=== PATIENT | male | born 1980 | race Hispanic/Latino ===

== ENCOUNTER 2018-03-05 09:53 | Emergency (ER) | payer SELFPAY ==
[2018-03-05] MEDS ORDERED: AMLODIPINE 5 MG TAB ONE (11:02)
[2018-03-05 11:13] LABS: Urine Blood NEGATIVE (NEG); Urine Glucose NEGATIVE (NEG); Urine Protein NEGATIVE (NEG)
[2018-03-05 11:18] LABS: Urine Bacteria <20 /HPF (NONE SEEN); Urine RBC <5 /HPF (NONE SEEN)
[2018-03-05 11:19] LABS: Urine Culture Reflex Order NOT NEEDED
[2018-03-05 11:20] LABS: Absolute Monocytes 0.4 K/uL (0.1-1.3); Absolute Neutrophil 6.8 K/uL (1.8-8.0); Basophils % 0.5 % (0-1.3); Eosinophils % 0.2 % (0-4.4); Hematocrit 42.8 % (39.6-49.0); Lymphocytes % 21.6 % (15.3-44.8); MPV 6.8 fL (7.6-11.3); Monocytes % 4.2 % (3.3-12.3); RBC Red Blood Cell Count 4.37 M/uL (4.33-5.43)
[2018-03-05 11:23] LABS: Barbiturates NEGATIVE (NEGATIVE); Benzodiazepines NEGATIVE (NEGATIVE); Cocaine NEGATIVE (NEGATIVE); METHAMPHETAM NEGATIVE (NEGATIVE); Methadone NEGATIVE (NEGATIVE); Opiates NEGATIVE (NEGATIVE); Phencyclidine NEGATIVE (NEGATIVE); THC Cannibis POSITIVE (NEGATIVE)
[2018-03-05 11:27] LABS: Albumin 4.2 g/dL (3.4-5.0); Bilirubin Direct 0.1 mg/dL (0-0.2); Bilirubin Total 0.3 mg/dL (0.2-1.0); Potassium 4.3 mmol/L (3.5-5.1); Protein, Total 8.4 g/dL (6.4-8.2)
--- NOTE | 2018-03-05 11:43 | EDPHYS ---
Physician Documentation [facility] Name: Raman Olivo Age: 37 yrs Sex: Male : 1980 Arrival Date: 03/05/2018 Time: 09:56 Bed 23 Private MD: ED Physician Teodoro Lees HPI: 03/05 11:01 This 37 yrs old Male presents to ER via Ambulatory with complaints of High snw Blood Pressure, Dizziness. 11:01 The patient has elevated blood pressure and discovered this [facility]. Onset: snw The symptoms/episode began/occurred gradually. Associated signs and symptoms: Pertinent positives: occ. dizziness. Severity of symptoms: in the emergency department the blood pressure is unchanged. has not been on medications. It is unknown whether or not the patient has recently seen a physician. Historical: - Allergies: 10:00 No Known Allergies; hj - Home Meds: 10:00 Effexor Oral [Active]; Wellbutrin Oral [Active]; Abilify oral oral [Active]; hj - PMHx: 10:00 Depression; Anxiety; hj - PSHx: 10:00 None; hj - Immunization history:: Adult Immunizations unknown. - Social history:: Smoking status: Patient uses tobacco products, Patient/guardian denies using alcohol. - Ebola Screening: : Patient negative for fever greater than or equal to 101.5 degrees Fahrenheit, and additional compatible Ebola Virus Disease symptoms Patient denies exposure to infectious person Patient denies travel to an Ebola-affected area in the 21 days before illness onset. ROS: 10:56 Eyes: Negative for injury, pain, redness, and discharge, ENT: Negative for injury, snw pain, and discharge, Neck: Negative for injury, pain, and swelling, Cardiovascular: Negative for chest pain, palpitations, and edema, Respiratory: Negative for shortness of breath, cough, wheezing, and pleuritic chest pain, Abdomen/GI: Negative for abdominal pain, nausea, vomiting, diarrhea, and constipation, Back: Negative for injury and pain, : Negative for injury, bleeding, discharge, and swelling, MS/Extremity: Negative for injury and deformity, Skin: Negative for injury, rash, and discoloration. 10:56 Constitutional: Positive for fatigue, malaise. 10:56 Neuro: Positive for dizziness, occasionally . 10:56 Psych: Positive for pt at [facility] - notes at each visit his blood pressure readings are high and he is advised to f/u PCP. Exam: 10:56 Constitutional: This is a well developed, well nourished patient who is awake, alert, snw and in no acute distress. Head/Face: Normocephalic, atraumatic. Eyes: Pupils equal round and reactive to light, extra-ocular motions intact. Lids and lashes normal. Conjunctiva and sclera are non-icteric and not injected. Cornea within normal limits. Periorbital areas with no swelling, redness, or edema. ENT: Nares patent. No nasal discharge, no septal abnormalities noted. Tympanic membranes are normal and external auditory canals are clear. Oropharynx with no redness, swelling, or masses, exudates, or evidence of obstruction, uvula midline. Mucous membranes moist. Neck: Trachea midline, no thyromegaly or masses palpated, and no cervical lymphadenopathy. Supple, full range of motion without nuchal rigidity, or vertebral point tenderness. No Meningismus. Chest/axilla: Normal chest wall appearance and motion. Nontender with no deformity. No lesions are appreciated. Cardiovascular: Regular rate and rhythm with a normal S1 and S2. No gallops, murmurs, or rubs. Normal PMI, no JVD. No pulse deficits. Respiratory: Lungs have equal breath sounds bilaterally, clear to auscultation and percussion. No rales, rhonchi or wheezes noted. No increased work of breathing, no retractions or nasal flaring. Abdomen/GI: Soft, non-tender, with normal bowel sounds. No distension or tympany. No guarding or rebound. No evidence of tenderness throughout. Back: No spinal tenderness. No costovertebral tenderness. Full range of motion. Skin: Warm, dry with normal turgor. Normal color with no rashes, no lesions, and no evidence of cellulitis. MS/ Extremity: Pulses equal, no cyanosis. Neurovascular intact. Full, normal range of motion. Neuro: Awake and alert, GCS 15, oriented to person, place, time, and situation. Cranial nerves II-XII grossly intact. Motor strength 5/5 in all extremities. Sensory grossly intact. Cerebellar exam normal. Normal gait. Vital Signs: 10:00 BP 172 / 127; Pulse 86; Resp 18; Temp 97.7(TE); Pulse Ox 99% on R/A; Weight 80.74 kg; hj Height 6 ft. 1 in. (185.42 cm); Pain 0/10; 10:37 BP 164 / 128; Pulse 84; Resp 18; Pulse Ox 100% on R/A; Pain 0/10; ls4 11:28 BP 158 / 115; Pulse 78; Resp 18; Pulse Ox 100% on R/A; Pain 0/10; ls4 12:20 BP 157 / 99; Pulse 76; Resp 18; Temp 98.2(O); Pulse Ox 99% on R/A; Pain 0/10; ls4 10:00 Body Mass Index 23.48 (80.74 kg, 185.42 cm) hj MDM: 10:06 Patient medically screened. snw 11:43 Data reviewed: vital signs, nurses notes. Data interpreted: Pulse oximetry: on room air snw is 100 %. Interpretation: normal. Counseling: I had a detailed discussion with the patient and/or guardian regarding: the historical points, exam findings, and any diagnostic results supporting the discharge/admit diagnosis, the presence of at least one elevated blood pressure reading (>120/80) during this emergency department visit, lab results, the need for outpatient follow up, to return to the emergency department if symptoms worsen or persist or if there are any questions or concerns that arise at home. Special discussion: I have referred the patient to see his PCP for further evaluation of high blood pressure. Based on the history and exam findings, there is no indication for further emergent testing or inpatient evaluation. I discussed with the patient/guardian the need to see the primary care provider for further evaluation of the symptoms. 03/05 10:47 Order name: Basic Metabolic Panel; Complete Time: 11:41 snw 03/05 10:47 Order name: CBC with Diff; Complete Time: 11:23 snw 03/05 10:47 Order name: Hepatic Function; Complete Time: 11:41 snw 03/05 10:47 Order name: Lipase; Complete Time: 11:41 snw 03/05 10:47 Order name: Urine Drug Screen; Complete Time: 11:25 snw 03/05 10:47 Order name: Urine Microscopic Only; Complete Time: 11:23 snw 03/05 10:47 Order name: IV Saline Lock; Complete Time: 11:07 snw 03/05 10:47 Order name: Labs collected and sent; Complete Time: : w 03/05 10:47 Order name: Urine Dipstick-Ancillary (obtain specimen); Complete Time: : snw 03/05 11:09 Order name: Urine Dipstick--Ancillary (enter results); Complete Time: 11:20 eb Administered Medications: 11:00 Drug: Norvasc 5 mg Route: PO; ls4 11:34 Follow up: Response: No adverse reaction; Blood pressure is lowered ls4 11:58 Drug: cloNIDine 0.1 mg Route: PO; ls4 Disposition: 03/06 07:20 Co-signature as Attending Physician, Teodoro Lees MD. rn Disposition: 03/05/18 11:42 Discharged to Home. Impression: Essential (primary) hypertension. - Condition is Stable. - Discharge Instructions: Hypertension, DASH Eating Plan, Managing Your Hypertension. - Prescriptions for Norvasc 5 mg Oral Tablet - take 1 tablet by ORAL route once daily; 20 tablet. - Medication Reconciliation Form, Thank You Letter, Antibiotic Education, Prescription Opioid Use form. - Follow up: Private Physician; When: 2 - 3 days; Reason: Recheck today's complaints, Continuance of care, Re-evaluation by your physician. Follow up: Emergency Department; When: As needed; Reason: Worsening of condition. Signatures: Dispatcher [employer] EDVT Shania Cruz, TYPE COPY EXAMINER-C TYPE COPY EXAMINER-Csnw Teodoro Lees MD MD rn Joaquin, Henry, RN RN hj Stewart, Lisa, RN RN ls4 Corrections: (The following items were deleted from the chart) 03/05 12:13 11:42 03/05/2018 11:42 Discharged to Home. Impression: Essential (primary) ls4 hypertension. Condition is Stable. Forms are Medication Reconciliation Form, Thank You Letter, Antibiotic Education, Prescription Opioid Use. Follow up: Private Physician; When: 2 - 3 days; Reason: Recheck today's complaints, Continuance of care, Re-evaluation by your physician. Follow up: Emergency Department; When: As needed; Reason: Worsening of condition. snw
--- NOTE | 2018-03-05 11:43 | ER ---
Nurse's Notes [facility] Name: Raman Olivo Age: 37 yrs Sex: Male : 1980 Arrival Date: 03/05/2018 Time: 09:56 Bed 23 Private MD: Diagnosis: Essential (primary) hypertension Presentation: 03/05 09:57 Presenting complaint: Patient states: i ve been feeling weak on and off for couple of hj weeks, i took my BP today and its, 166/104; reports nausea; denies headache; denies meds for HTN M[employer] JOU[employer]LIST;. Transition of care: patient was not received from another setting of care. Onset of symptoms was March 05, 2018. Risk Assessment: Do you want to hurt yourself or someone else? Patient reports no desire to harm self or others. Initial Sepsis Screen: Does the patient meet any 2 criteria? No. Patient's initial sepsis screen is negative. Does the patient have a suspected source of infection? No. Patient's initial sepsis screen is negative. Care prior to arrival: None. 09:57 Method Of Arrival: Ambulatory 09:57 Acuity: MARY 3 hj Triage Assessment: 10:00 General: Appears in no apparent distress. uncomfortable, Behavior is calm, cooperative, hj appropriate for age. Pain: Denies pain. Historical: - Allergies: 10:00 No Known Allergies; hj - Home Meds: 10:00 Effexor Oral [Active]; Wellbutrin Oral [Active]; Abilify oral oral [Active]; hj - PMHx: 10:00 Depression; Anxiety; hj - PSHx: 10:00 None; hj - Immunization history:: Adult Immunizations unknown. - Social history:: Smoking status: Patient uses tobacco products, Patient/guardian denies using alcohol. - Ebola Screening: : Patient negative for fever greater than or equal to 101.5 degrees Fahrenheit, and additional compatible Ebola Virus Disease symptoms Patient denies exposure to infectious person Patient denies travel to an Ebola-affected area in the 21 days before illness onset. Screenin:00 Abuse screen: Denies threats or abuse. Denies injuries from another. Nutritional hj screening: No deficits noted. Tuberculosis screening: No symptoms or risk factors identified. Fall Risk None identified. Assessment: 10:05 General: Appears in no apparent distress. Neuro: Reports dizziness, since for a few ls4 weeks. Cardiovascular: Reports fatigue, Capillary refill < 3 seconds Chest pain is denied. Respiratory: Airway is patent Trachea midline Respiratory effort is even, unlabored, Respiratory pattern is regular, Breath sounds are clear bilaterally. GI: No deficits noted. : No deficits noted. Derm: No deficits noted. Musculoskeletal: No deficits noted. 11:28 Reassessment: Patient and/or family updated on plan of care and expected duration. Pain ls4 level reassessed. Patient is alert, oriented x 3, equal unlabored respirations, skin warm/dry/pink. Vital Signs: 10:00 BP 172 / 127; Pulse 86; Resp 18; Temp 97.7(TE); Pulse Ox 99% on R/A; Weight 80.74 kg; hj Height 6 ft. 1 in. (185.42 cm); Pain 0/10; 10:37 BP 164 / 128; Pulse 84; Resp 18; Pulse Ox 100% on R/A; Pain 0/10; ls4 11:28 BP 158 / 115; Pulse 78; Resp 18; Pulse Ox 100% on R/A; Pain 0/10; ls4 12:20 BP 157 / 99; Pulse 76; Resp 18; Temp 98.2(O); Pulse Ox 99% on R/A; Pain 0/10; ls4 10:00 Body Mass Index 23.48 (80.74 kg, 185.42 cm) ED Course: 09:56 Patient arrived in ED. as 09:59 Triage completed. hj 10:00 Arm band placed on right wrist. hj 10:00 Patient has correct armband on for positive identification. Placed in gown. Bed in low hj position. Call light in reach. Side rails up X 1. 10:02 Shania Cruz FNP-C is [facility]. snw 10:02 Teodoro Lees MD is Attending Physician. snw 10:05 Crystal Oates, ROBINSON is Primary Nurse. ls4 10:07 No provider procedures requiring assistance completed. ls4 Administered Medications: 11:00 Drug: Norvasc 5 mg Route: PO; ls4 11:34 Follow up: Response: No adverse reaction; Blood pressure is lowered ls4 11:58 Drug: cloNIDine 0.1 mg Route: PO; ls4 Outcome: 11:42 Discharge ordered by . snw 12:10 Condition: stable ls4 12:10 Discharged to home ambulatory, with family. ls4 12:10 Discharge instructions given to patient, family, Instructed on discharge instructions, follow up and referral plans. medication usage, safety practices. 12:13 Patient left the ED. ls4 Signatures: Shania Cruz, CONSTRUCTION PIT WORKER-C CONSTRUCTION PIT WORKER-Csnw Francesca Rivera Henry, RN RN Crystal Oates RN RN ls4 Corrections: (The following items were deleted from the chart) 10:02 10:00 Pulse 86bpm; Resp 18bpm; Pulse Ox 99% RA; Temp 97.7F Temporal; 80.74 kg; Height 6 hj ft. 1 in.; BMI: 23.4; Pain 0/10; hj
[2018-03-05] MEDS ORDERED: cloNIDine HCl 0.1 MG TAB ONE (12:06)
== END 2018-03-05 12:13 | disposition home or self-care (01) ==
LOC: ER 09:53
DX: I10 Essential (primary) hypertension (principal); F32.9 Major depressive disorder, single episode, unspecified; F41.9 Anxiety disorder, unspecified; Z79.899 Other long term (current) drug therapy; Z72.0 Tobacco use
CPT/HCPCS: 36415; 80048; 80076; 80307; 81003; 81015; 83690; 85025; 99283

== ENCOUNTER 2019-03-03 08:26 | Emergency (ER) | payer SELFPAY ==
[2019-03-03] MEDS ORDERED: NA CHLORIDE 0.9% 1,000 ML ONE (09:04)
[2019-03-03] MEDS ORDERED: CEFTRIAXONE/SWI 1gm 2 GM/20 ML SYR ONE (09:04)
[2019-03-03] MEDS ORDERED: dexAMETHasone 10 MG/ML VIAL ONE (09:04)
[2019-03-03] MEDS ORDERED: CLINDAMYCIN 900MG/D5W 900 MG/50 ML IVPB IV ONE (09:04)
[2019-03-03 09:09] LABS: Absolute Lymphocytes (CBC) 1.3 K/uL (0.7-4.9); Basophils % 0.4 % (0-1.3); Hematocrit 37.6 % (39.6-49.0); Lymphocytes % 8.2 % (15.3-44.8); MPV 6.5 fL (7.6-11.3); RBC Red Blood Cell Count 3.88 M/uL (4.33-5.43)
[2019-03-03 09:31] LABS: ALT/SGPT 44 U/L (12-78); AST/SGOT 33 U/L (15-37); Albumin 3.4 g/dL (3.4-5.0); Alkaline Phosphatase 106 U/L (45-117); BUN Blood Urea Nitrogen 10 mg/dL (7-18); Bicarbonate 28 mmol/L (21-32); Bilirubin Total 0.5 mg/dL (0.2-1.0); Glucose Level 108 mg/dL (74-106); Potassium 3.7 mmol/L (3.5-5.1); Protein, Total 7.9 g/dL (6.4-8.2); Sodium Level 138 mmol/L (136-145)
[2019-03-03] MEDS ORDERED: KETOROLAC 30 MG/ML INJ ONE (09:31)
--- NOTE | 2019-03-03 10:24 | RAD REPORT ---
EXAM DESCRIPTION: CT - Soft Tissue Neck W/Contr - 03/03/2019 10:01 am CLINICAL HISTORY: Neck pain with sore throat COMPARISON: None. TECHNIQUE: Computed axial tomography of the neck was obtained. 50 cc Isovue 300 was administered in travenously. Coronal and sagittal reconstruction was performed. All CT scans are performed using dose optimization technique as appropriate and may include automated exposure control or mA/KV adjustment according to patient size. FINDINGS: The left tonsil is enlarged. 21 millimeter left peritonsillar abscess. The uvula appears m ildly edematous. Remainder the airway unremarkable The parotid, submandibular and thyroid glands appear unremarkable. Reactive lymphadenopathy IMPRESSION: Left tonsillitis with 21 millimeter left peritonsillar abscess
--- NOTE | 2019-03-03 11:37 | ER ---
Nurse's Notes [facility] Name: Raman Olivo Age: 38 yrs Sex: Male : 1980 Arrival Date: 03/03/2019 Time: 08:27 Bed 17 Private MD: Diagnosis: Peritonsillar abscess-21 mm left;Acute tonsillitis Presentation: 03/03 08:37 Presenting complaint: Patient states: "I had a fever 2 days ago but then it went away aa5 but my tonsils are swollen and my throat hurts". Pt also c/o left ear pain. Denies cough. 08:37 Transition of care: patient was not received from another setting of care. Onset of aa5 symptoms was February 2019. Risk Assessment: Do you want to hurt yourself or someone else? Patient reports no desire to harm self or others. Initial Sepsis Screen: Does the patient meet any 2 criteria? HR > 90 bpm. Does the patient have a suspected source of infection? No. Patient's initial sepsis screen is negative. Care prior to arrival: None. 08:37 Method Of Arrival: Ambulatory aa5 08:37 Acuity: MARY 3 aa5 Historical: - Allergies: 08:40 No Known Allergies; aa5 - Home Meds: 08:40 Effexor Oral [Active]; Abilify Oral [Active]; Wellbutrin Oral [Active]; aa5 - PMHx: 08:40 Anxiety; Depression; aa5 - PSHx: 08:40 None; aa5 - Immunization history:: Flu vaccine is not up to date. - Social history:: Smoking status: Patient uses tobacco products, denies chronic smoking, but will smoke occasionally. - Ebola Screening: : No symptoms or risks identified at this time. Screenin:09 Abuse screen: Denies threats or abuse. Nutritional screening: No deficits noted. tw2 Tuberculosis screening: No symptoms or risk factors identified. Fall Risk None identified. Assessment: 09:10 General: Appears in no apparent distress. comfortable, Behavior is calm, cooperative, em appropriate for age, Reports fever for 2-3 days. Pain: Complains of pain in uvula Pain currently is 7 out of 10 on a pain scale. Neuro: Level of Consciousness is awake, alert, obeys commands, Oriented to person, place, time, situation, Appropriate for age. Cardiovascular: Capillary refill < 3 seconds Patient's skin is warm and dry. Respiratory: Airway is patent Respiratory effort is even, unlabored, Respiratory pattern is regular, symmetrical. EENT: Throat is reddened has enlarged tonsils bilaterally. Derm: Skin is intact, is healthy with good turgor, Skin is pink, warm \\T\\ dry. Musculoskeletal: Capillary refill < 3 seconds, Range of motion: intact in all extremities. 09:10 Reassessment: I agree with assessment completed by Danielito Gerardo LVN . aa5 10:00 Reassessment: Patient appears in no apparent distress at this time. Patient and/or em family updated on plan of care and expected duration. Pain level reassessed. Patient is alert, oriented x 3, equal unlabored respirations, skin warm/dry/pink. rates pain 6/10 Patient states feeling better. 11:51 Reassessment: Patient appears in no apparent distress at this time. Patient and/or em family updated on plan of care and expected duration. Pain level reassessed. Patient is alert, oriented x 3, equal unlabored respirations, skin warm/dry/pink. rates pain 5/10 Patient states feeling better. 12:04 Reassessment: report given to ROBINSON Huynh at [facility]. em 13:09 Reassessment: Patient appears in no apparent distress at this time. Patient is alert, em oriented x 3, equal unlabored respirations, skin warm/dry/pink. report given to EMS. Vital Signs: 08:40 BP 153 / 109; Pulse 102; Resp 18 S; Temp 98.8(O); Pulse Ox 98% on R/A; Weight 81.65 kg aa5 (R); Height 6 ft. 1 in. (185.42 cm) (R); Pain 7/10; 09:30 BP 145 / 108; Pulse 97; Resp 18; Pulse Ox 98% on R/A; Pain 7/10; em 11:50 BP 141 / 99; Pulse 90; Resp 16; Temp 97.9(O); Pulse Ox 99% on R/A; Pain 5/10; em 08:40 Body Mass Index 23.75 (81.65 kg, 185.42 cm) aa5 ED Course: 08:27 Patient arrived in ED. as 08:37 Arm band placed on Patient placed in an exam room, on a stretcher. aa5 08:38 James Lockhart MD is Attending Physician. [facility] 08:45 Bed in low position. Call light in reach. tw2 08:47 Triage completed. aa5 08:59 Danielito Gerardo LVN is Primary Nurse. em 09:05 Inserted saline lock: 20 gauge in right forearm, using aseptic technique. Blood tw2 collected. 10:14 CT Soft Tissue Neck W/contr In Process Unspecified. EDMS 13:07 No provider procedures requiring assistance completed. Patient transferred, IV remains em in place. Administered Medications: 09:20 Drug: NS 0.9% 1000 ml Route: IV; Rate: 1 bolus; Site: right forearm; em 10:19 Follow up: IV Status: Completed infusion; IV Intake: 1000ml em 09:22 Drug: Rocephin 2 grams Route: IV; Rate: per protocol; Site: right forearm; tw2 09:26 Follow up: IV Status: Completed infusion tw2 09:25 Drug: Clindamycin 900 mg Route: IVPB; Infused Over: 30 mins; Site: right forearm; em 10:19 Follow up: Response: No adverse reaction; IV Status: Completed infusion; IV Intake: 50mlem 09:26 Drug: Decadron - Dexamethasone 10 mg Route: IVP; Site: right forearm; tw2 10:20 Follow up: Response: No adverse reaction em 09:37 Drug: TORadol 30 mg Route: IVP; Site: right forearm; tw2 10:20 Follow up: Response: No adverse reaction; Marked relief of symptoms; Pain is decreased em Intake: 10:19 IV: 1000ml; Total: 1000ml. em 10:19 IV: 50ml; Total: 1050ml. em Outcome: 10:32 ER care complete, transfer ordered by . [facility] 13:07 Transferred by ground EMS to [facility], [facility], Transfer form completed. em X-rays sent w/ patient. 13:07 Condition: good 13:07 Instructed on the need for admit, Demonstrated understanding of instructions. 13:23 Patient left the ED. em Signatures: Dispatcher [employer] EDJames Rod MD MD cha Munoz, Edgar, LVN RAILROAD WATCHMAN em Francesca Rivera Audri, RN RN aa5 Allison Leiva RN RN tw2 Corrections: (The following items were deleted from the chart) 08:37 Acuity: MARY 4 aa5 aa5
--- NOTE | 2019-03-03 11:39 | EDPHYS ---
Physician Documentation [facility] Name: Raman lOivo Age: 38 yrs Sex: Male : 1980 Arrival Date: 03/03/2019 Time: 08:27 Bed 17 Private MD: ED Physician James Lockhart HPI: 03/03 08:53 This 38 yrs old Male presents to ER via Ambulatory with complaints of Ear demarcus Pain, Fever, Sore Throat. 08:53 This 38 yrs old Male presents to ER via Ambulatory with complaints of Ear demarcus Pain, Fever, Sore Throat. 08:53 The patient presents with pain, that is acute, swelling, tenderness. The complaints demarcus affect the left buccal mucosa, uvula and left aspect of posterior pharynx. Onset: The symptoms/episode began/occurred 3 day(s) ago. Modifying factors: The symptoms are alleviated by. Associated signs and symptoms: Pertinent positives: fever, sore throat. Severity of symptoms: At their worst the symptoms were moderate in the emergency department the symptoms are unchanged. The patient has not experienced similar symptoms in the past. Historical: - Allergies: 08:40 No Known Allergies; aa5 - Home Meds: 08:40 Effexor Oral [Active]; Abilify Oral [Active]; Wellbutrin Oral [Active]; aa5 - PMHx: 08:40 Anxiety; Depression; aa5 - PSHx: 08:40 None; aa5 - Immunization history:: Flu vaccine is not up to date. - Social history:: Smoking status: Patient uses tobacco products, denies chronic smoking, but will smoke occasionally. - Ebola Screening: : No symptoms or risks identified at this time. ROS: 08:54 Constitutional: Negative for fever, chills, and weight loss, Eyes: Negative for injury, demarcus pain, redness, and discharge, Neck: Negative for injury, pain, and swelling, Cardiovascular: Negative for chest pain, palpitations, and edema, Respiratory: Negative for shortness of breath, cough, wheezing, and pleuritic chest pain, Abdomen/GI: Negative for abdominal pain, nausea, vomiting, diarrhea, and constipation, Back: Negative for injury and pain, : Negative for injury, bleeding, discharge, and swelling, MS/Extremity: Negative for injury and deformity, Skin: Negative for injury, rash, and discoloration, Neuro: Negative for headache, weakness, numbness, tingling, and seizure, Psych: Negative for depression, anxiety, suicide ideation, homicidal ideation, and hallucinations, Allergy/Immunology: Negative for hives, rash, and allergies, Endocrine: Negative for neck swelling, polydipsia, polyuria, polyphagia, and marked weight changes, Hematologic/Lymphatic: Negative for swollen nodes, abnormal bleeding, and unusual bruising. 08:54 ENT: Positive for rhinorrhea, sinus congestion, sore throat. Exam: 08:54 Constitutional: This is a well developed, well nourished patient who is awake, alert, demarcus and in no acute distress. Head/Face: Normocephalic, atraumatic. Eyes: Pupils equal round and reactive to light, extra-ocular motions intact. Lids and lashes normal. Conjunctiva and sclera are non-icteric and not injected. Cornea within normal limits. Periorbital areas with no swelling, redness, or edema. Neck: Trachea midline, no thyromegaly or masses palpated, and no cervical lymphadenopathy. Supple, full range of motion without nuchal rigidity, or vertebral point tenderness. No Meningismus. Chest/axilla: Normal chest wall appearance and motion. Nontender with no deformity. No lesions are appreciated. Cardiovascular: Regular rate and rhythm with a normal S1 and S2. No gallops, murmurs, or rubs. Normal PMI, no JVD. No pulse deficits. Respiratory: Lungs have equal breath sounds bilaterally, clear to auscultation and percussion. No rales, rhonchi or wheezes noted. No increased work of breathing, no retractions or nasal flaring. Abdomen/GI: Soft, non-tender, with normal bowel sounds. No distension or tympany. No guarding or rebound. No evidence of tenderness throughout. Back: No spinal tenderness. No costovertebral tenderness. Full range of motion. Male : Normal genitalia with no discharge or lesions. Skin: Warm, dry with normal turgor. Normal color with no rashes, no lesions, and no evidence of cellulitis. MS/ Extremity: Pulses equal, no cyanosis. Neurovascular intact. Full, normal range of motion. Neuro: Awake and alert, GCS 15, oriented to person, place, time, and situation. Cranial nerves II-XII grossly intact. Motor strength 5/5 in all extremities. Sensory grossly intact. Cerebellar exam normal. Normal gait. Psych: Awake, alert, with orientation to person, place and time. Behavior, mood, and affect are within normal limits. 08:54 ENT: Posterior pharynx: Tonsils: enlarged on the left, with erythema, Uvula: midline, edematous, erythema, swelling, that is moderate, erythema, that is moderate, exudate, is not appreciated, peritonsillar mass, is noted on left, pooling of secretions, is not appreciated. Vital Signs: 08:40 BP 153 / 109; Pulse 102; Resp 18 S; Temp 98.8(O); Pulse Ox 98% on R/A; Weight 81.65 kg aa5 (R); Height 6 ft. 1 in. (185.42 cm) (R); Pain 7/10; 09:30 BP 145 / 108; Pulse 97; Resp 18; Pulse Ox 98% on R/A; Pain 7/10; em 11:50 BP 141 / 99; Pulse 90; Resp 16; Temp 97.9(O); Pulse Ox 99% on R/A; Pain 5/10; em 08:40 Body Mass Index 23.75 (81.65 kg, 185.42 cm) aa5 MDM: 08:38 Patient medically screened. [facility] 08:56 Data reviewed: vital signs, nurses notes, lab test result(s), radiologic studies, CT demarcus scan. 03/03 08:53 Order name: CBC with Diff; Complete Time: 09:36 [facility] 03/03 08:53 Order name: Comprehensive Metabolic Panel; Complete Time: 09:36 [facility] 03/03 08:53 Order name: CT Soft Tissue Neck W/contr [facility] 03/03 08:56 Order name: IV Start; Complete Time: 09:09 tw2 Administered Medications: 09:20 Drug: NS 0.9% 1000 ml Route: IV; Rate: 1 bolus; Site: right forearm; em 10:19 Follow up: IV Status: Completed infusion; IV Intake: 1000ml em 09:22 Drug: Rocephin 2 grams Route: IV; Rate: per protocol; Site: right forearm; tw2 09:26 Follow up: IV Status: Completed infusion tw2 09:25 Drug: Clindamycin 900 mg Route: IVPB; Infused Over: 30 mins; Site: right forearm; em 10:19 Follow up: Response: No adverse reaction; IV Status: Completed infusion; IV Intake: 50mlem 09:26 Drug: Decadron - Dexamethasone 10 mg Route: IVP; Site: right forearm; tw2 10:20 Follow up: Response: No adverse reaction em 09:37 Drug: TORadol 30 mg Route: IVP; Site: right forearm; tw2 10:20 Follow up: Response: No adverse reaction; Marked relief of symptoms; Pain is decreased em Disposition: 03/03/19 10:32 Transfer ordered to [facility]. Diagnosis are Peritonsillar abscess - 21 mm left, Acute tonsillitis. - Reason for transfer: Higher level of care. - [facility]. - Condition is Stable. - Problem is new. - Symptoms have improved. Signatures: Dispatcher [employer] James Castanon MD MD cha Munoz, Edgar, FIELD CASE MANAGER FIELD CASE MANAGER Teri Velázquez, RN RN aa5 Allison Leiva RN RN tw2 Corrections: (The following items were deleted from the chart) 13:23 10:32 03/03/2019 10:32 Transfer ordered to [facility]. Diagnosis is em Peritonsillar abscess - 21 mm left; Acute tonsillitis. Reason for transfer: Higher level of care. [facility]. Condition is Stable. Problem is new. Symptoms have improved. demarcus
[2019-03-03 13:35] VITALS: BP 141/99; TEMP 97.9; O2SAT 99
== END 2019-03-03 13:23 | disposition short-term general hospital (02) ==
LOC: ER 08:26
DX: J36 Peritonsillar abscess (principal); F41.8 Other specified anxiety disorders
CPT/HCPCS: 36415; 70491; 80053; 85025; 96365; 96375; 99285; J0696; J1100; J7030; Q9967

== ENCOUNTER 2019-09-12 13:03 | Emergency (ER) | payer SELFPAY ==
--- OUTSIDE RECORDS SUMMARY | 2019-09-12 13:05 | XMS REPORT | Clinical Summary ---
:1980 Author Organization [facility] Address [address] [place] [address] Care Team Providers Name Role Phone Unavailable Primary Care Provider Unavailable Allergies No Known Allergies Medications Medication Sig Dispensed Refills Start Date End Date Status ARIPiprazole Take 10 mg by 0 Act tae (ABILIFY) 10 MG mouth daily. tablet buPROPion Take 150 mg 0 Active (WELLBUTRIN XL) 150 by mouth MG 24 hr tablet daily. venlafaxine Take 225 mg 0 Active (EFFEXOR-XR) 75 MG by mouth 24 hr capsule daily. venlafaxine Take 225 mg 0 03/03/2019 Disco ntinued (EFFEXOR) 75 MG by mouth tablet once. acetaminophen Take 2 30 tablet 0 03/04/2019 03/14/2019 Expi red (TYLENOL) 325 MG tablets (650 tablet mg total) by mouth every 6 (six) hours as needed for up to 10 days. amoxicillin-clavulan Take 1 tablet 24 tablet 0 03/04/201902/26 ate (AUGMENTIN) by mouth 2 875-125 mg per (two) times tablet daily for 12 days. Active Problems Problem Noted Date Peritonsillar abscess 03/03/2019 Encounters Date Type Specialty Care Team Description 03/03/2019 - Hospital Encounter General Internal Brett Cook onsillar abscess 03/04/2019 Medicine MD Guillaume Pacheco Narendra, MD 03/03/2019 Travel 03/03/2019 Documentation Internal Medicine Tara Cook MD after 09/11/2018 Social History Tobacco Use Types Packs/Day Years Used Date Former Smoker Cigarettes 1 10 03/03/2019 - 0 03/03/2019 Smokeless Tobacco: Current User Tobacco Cessation: Ready to Quit: No; Co unseling Given: Yes Alcohol Use Drinks/Week oz/Week Comments Yes 1 Cans of beer 0.6 Alcohol Habits Answer Date Recorded How often do you have a drink containing alcohol? 2-4 times a month 03/03/2019 How many drinks containing alcohol do you have on a Not aske d typical day when you are drinking? How often do you have six or more drinks on one Never 03/03/2019 occasion? Physical Activity Answer Date Recorded On average, how many days per week do you engage in moderate 1 day 03/03/2019 to strenuous exercise (like walking fast, running, jogging, dancing, swimming, biking, or other activities that cause a light or heavy sweat)? On average, how many minutes do you engage in exercise at No t asked this level? Stress Answer Date Recorded Do you feel stress - tense, restless, nervous, or anxious, N ot at all 03/03/2019 or unable to sleep at night because your mind is troubled all the time - these days? Sex Assigned at Date Recorded Not on file Job Start Date Occupation Industry Not on file Not on file Not on file Travel History Travel Start Travel End No recent travel history available. Last Filed Vital Signs Vital Sign Reading Time Taken Blood Pressure 116/69 03/04/2019 11:39 AM [employer] Pulse 87 03/04/2019 11:39 AM [employer] Temperature 36.1 C (96.9 F) 03/04/2019 11:39 AM [employer] Respiratory Rate 17 03/04/2019 11:39 AM [employer] Oxygen Saturation 99% 03/04/2019 11:39 AM [employer] Inhaled Oxygen Concentration - - Weight 78.4 kg (172 lb 12.8 oz) 03/03/2019 3:0 6 PM [employer] Height 185.4 cm (6' 1") 03/03/2019 3:06 PM [employer] Body Mass Index 22.8 03/03/2019 3:06 PM [employer] Plan of Treatment Health Maintenance Due Date Last Done Comments INFLUENZA VACCINE (#1) 2019 Procedures Procedure Name Priority Date/Time Associated Comments Diagnosis BASIC METABOLIC PANEL Routine 03/04/2019 3:34 Re sults for this (7) AM [employer] procedure are i n the results section. CBC (HEMOGRAM ONLY) Routine 03/04/2019 3:34 Resu lts for this AM [employer] procedure are i n the results section. WOUND CULTURE + GRAM Routine 03/03/2019 8:52 Res ults for this STAIN PM [employer] procedure are i n the results section. CBC W/PLT COUNT & Routine 03/03/2019 4:51 Result s for this AUTO DIFFERENTIAL PM [employer] procedure are in the results section. BASIC METABOLIC PANEL Routine 03/03/2019 4:51 Re sults for this (7) PM [employer] procedure are i n the results section. CBC W/PLT COUNT & Routine 03/03/2019 4:51 Result s for this AUTO DIFFERENTIAL PM [employer] procedure are in the results section. after 09/11/2018 Results CBC (Hemogram only) (03/04/2019 3:34 AM [employer]) WBC 12.0 (H) 3.5 - 10.5 K/L [facility] RBC 3.62 (L) 4.63 - 6.08 M/L [facility] Hemoglobin 11.7 (L) 13.7 - 17.5 GM/DL [facility] Hematocrit 35.6 (L) 40.1 - 51.0 % [facility] MCV 98.3 (H) 79.0 - 92.2 fL [facility] MCH 32.3 (H) 25.7 - 32.2 pg [facility] MCHC 32.9 32.3 - 36.5 GM/DL [facility] RDW 12.7 11.6 - 14.4 % [facility] Platelets 332 150 - 450 K/CU MM [facility] MPV 8.5 (L) 9.4 - 12.4 fL [facility] nRBC 0 0 - 0 /100 WBC [facility] Specimen Blood Performing Organization Address City/State/Zipcode Phone Number [facility] [address] [place] [address] CENTER Basic Metabolic Panel (03/04/2019 3:34 AM [employer])Only the most recent of2 results within the time period is included. Sodium 138 136 - 145 meq/L [facility] Potassium 4.2Comment: Specimen slightly 3.5 - 5.1 meq/L [facility] hemolyzed [facility] Chloride 106 98 - 107 meq/L [facility] CO2 22 22 - 29 meq/L [facility] BUN 13 7 - 21 mg/dL [facility] Creatinine 0.70Comment: Specimen 0.57 - 1.25 mg/dL [facility] slightly hemolyzed [facility] R Glucose 91 70 - 105 mg/dL [facility] Calcium 8.8 8.4 - 10.2 mg/dL [facility] EGFR 126Comment: ESTIMATED GFR IS mL/min/1.73 sq m [facility] NOT ACCURATE CREATININE ID [facility]ENTER CLEARANCE IN PREDICTING GLOMERULAR FILTRATION RATE. ESTIMATED GFR IS NOT APPLICABLE FOR DIALYSIS PATIENTS. Specimen Blood Performing Organization Address City/[facility]/Zipcode Phone Number [address] [address] CENTER Wound culture + gram stain (03/03/2019 8:52 PM [employer]) Result 4+ Beta-hemolytic streptococcus [facility] group A, by serological [facility] grouping (A) Gram Stain Result 3+ WBCs [facility] Gram Stain Result 1+ gram positive cocci in [facility] chains [facility] Specimen Abscess Performing Organization Address City/[facility]/Zipcode Phone Number [address] [address] CENTER CBC with platelet count + automated diff (03/03/2019 4:51 PM [employer]) WBC 14.8 (H) 3.5 - 10.5 K/L [facility] RBC 3.88 (L) 4.63 - 6.08 M/L [facility] Hemoglobin 12.7 (L) 13.7 - 17.5 GM/DL [facility] Hematocrit 38.5 (L) 40.1 - 51.0 % [facility] MCV 99.2 (H) 79.0 - 92.[address] [facility] MCH 32.7 (H) 25.7 - 32.2 pg [facility] MCHC 33.0 32.3 - 36.5 GM/DL [facility] RDW 13.0 11.6 - 14.4 % [facility] Platelets 329 150 - 450 K/CU MM [facility] MPV 8.5 (L) 9.4 - 12.4 fL [facility] nRBC 0 0 - 0 /100 WBC [facility] % Neutros 90 % [facility] % Lymphs 8 % [facility] % Monos 1 % [facility] % Eos 0 % [facility] % Baso 0 % [facility] # Neutros 13.38 (H) 1.78 - 5.38 K/L [facility] # Lymphs 1.21 (L) 1.32 - 3.57 K/L [facility] # Monos 0.15 (L) 0.30 - 0.82 K/L [facility] # Eos 0.00 (L) 0.04 - 0.54 K/L [facility] # Baso 0.02 0.01 - 0.08 K/L [facility] Immature 1 0 - 1 % [facility] Granulocytes-Relative [facility] Specimen Blood Performing Organization Address City/State/Zipcode Phone Number [facility] [address] [place] [address] CENTER after 09/11/2018
--- OUTSIDE RECORDS SUMMARY | 2019-09-12 13:06 | XMS REPORT | Continuity of Care Document ---
:1980 Author Organization [facility] t Address [address] [place] [address] Care Team Providers Name Role Phone JOYCE Attending Clinician Unavailable Joyce SHELTON Attending Clinician Guillaume SHELTON Attending Clinician JOYCE Admitting Clinician Unavailable Problems Condition Condition Condition Status Onset Resolution Last Treating Co mments Source Name Details Category Date Date Treatment Clinician Date Peritonsil Peritonsil Disease Active [facility] Allergies, Adverse Reactions, Alerts This patient has no known allergies or adverse reactions. Social History Social Habit Start Date Stop Date Quantity Comments Source History [facility] - Alcohol Std Dr[facility] - Physical Activity [facility] MPS Sex Assigned At [facility] Center History of tobacco 2019-03-03 2019-03-03 Current smoker [facility] use [facility]00 [facility] Cigarettes smoked 2019-03-03 2019-03-[address] [facility] - current (pack per 00:00:00 00:00:00 Medical Center day) - Reported Cigarette 2019-03-03 2019-03-[address] [facility] - pack-years 00:00:00 00:00:00 Medical Center History [facility] 2019-03-03 2019-03-[address] [facility] - Alcohol Frequency 00:00:00 00:00:00 Medical Center History [facility] 2019-03-03 2019-03-[address] [facility] - Alcohol Binge 00:00:00 00:00:00 Medical [facility] History [facility] 2019-03-03 2019-03-[address] [facility] - Physical Activity 00:00:00 00:00:00 Medical Center DPW History SDOH Stress 2019-03-03 2019-03-03 1 [facility] Smoking Status Start Date Stop Date Source Former smoker 2019-03-03 00:00:00 2019-03-03 00:00:[address] [facility] Medications Ordered Filled Start Stop Current Ordering Indication Dosage Frequency Signature Comments Components Source Medication Medication Date Date Medication? Clinician (SIG) Name Name amoxicillin No 1{tbl} Q.5D Take [address] -clavulanat 03-04 tablet by Lolis kes - e 00:00: 23:59 mouth 2 Medical (AUGMENTIN) 00 :00 (two) [place] 875-125 mg times per tablet daily for 12 days. acetaminoph No 650mg Take [address] [facility] 03-04 tablets [facility] - (TYLENOL) 00:00: 23:59 (650 mg Medi annabella 325 MG 00 :00 total) by [place] tablet mouth every 6 (six) hours as needed for up to 10 days. venlafaxine No 225mg Take [address] (EFFEXOR) 1-06 01-06 mg by [facility] - 75 MG 17:03: 00:00 mouth Medical tablet 48 :00 once. [place] venlafaxine Yes 225mg QD Take [address] (EFFEXOR-XR 1-06 mg by [facility] - ) 75 MG 24 17:03: mouth Medica l hr capsule 26 daily. [place] ARIPiprazol Yes 10mg QD Take [address] [facility] (ABILIFY) 1-06 by mouth [facility] - 10 MG 15:22: daily. Medical tablet 54 Center buPROPion Yes 150mg QD Take [address] (WELLBUTRIN 1-06 mg by [facility] - XL) 150 MG 15:22: mouth Medica l 24 hr 54 daily. [place] tablet Vital Signs Vital Name Observation Time Observation Value Comments Source Systolic blood 2019-03-04 11:39:00 116 mm[Hg] [facility] pressure [facility] Diastolic blood 2019-03-04 11:39:00 69 mm[Hg] [facility] Heart rate 2019-03-04 11:39:00 87 /min [facility] Body temperature 2019-03-04 11:39:00 36.06 Nany [facility] Respiratory rate 2019-03-04 11:39:00 17 /min [facility] Oxygen saturation in 2019-03-04 11:39:00 99 /min [facility] Arterial blood by Medical Ce nter Pulse oximetry Body height 2019-03-03 15:06:00 185.4 cm [facility] Body weight Measured 2019-03-03 15:06:00 78.382 kg [facility] BMI 2019-03-03 15:06:00 22.80 kg/m2 [facility] Procedures Procedure Date / Time Performed Performing Clinician [facility] e CBC (HEMOGRAM ONLY) 2019-03-04 03:34:00 Joyce Tara [facility] BASIC METABOLIC PANEL 2019-03-04 03:34:[address] WOUND CULTURE + GRAM 2019-03-03 20:52:00 [facility]illian [facility] BASIC METABOLIC PANEL 2019-03-03 16:51:[address] CBC W/PLT COUNT & AUTO 2019-03-03 16:51:00 [facility] Plan of Care Planned Activity Planned Date Details Comments Source Future Scheduled 2019-10-28 INFLUENZA VACCINE [facility] - Test 00:00:00 (#1) [code = [facility] INFLUENZA VACCINE (#1)] Results Test Description Test Time Test Comments Results Result Comments Source Wound culture + gram stain 2019-03-05 12:59:00 Test Item Value Reference Range Interpretation Comme nts Result (test code = 6463-4) 4+ Beta-hemolytic streptococcus group A A, by serological grouping Gram Stain Result (test code = 1123) 1+ gram positive cocci in nazario ns Lab Interpretation (test code = 89600-2) [facility] [id number] 12:59:00 Test Item Value Reference Range Interpretation Comments CULTURE (BEAKER) A 4+ Beta-hem olytic (test code = streptococcus g roup 1095) A, by serologic al grouping GRAM STAIN 3+ WBCs RESULT (BEAKER) (test code = 1123) GRAM STAIN 1+ gram positive RESULT (BEAKER) cocci in chains (test code = 40221) [facility] Metabolic [id number] 05:17:00 Test Item Value Reference Range Interpretation Comments Sodium (test code = 138 meq/L 091-807 6150-2) Potassium (test code 4.2 meq/L 3.5-5.1 Specime n slightly = 2823-3) hemolyzed Chloride (test code = 106 meq/L 98-107 2075-0) CO2 (test code = 22 meq/L 22-29 8-9) BUN (test code = 13 mg/dL 7-21 3094-0) Creatinine (test code 0.70 mg/dL 0.57-1.25 Specim en slightly = 2160-0) hemolyzed Glucose (test code = 91 mg/dL 70-105 2345-7) Calcium (test code = 8.8 mg/dL 8.4-10.2 62038-6) EGFR (test code = 126 mL/min/1.73 [place] [address]-6) ACCURATE CREATININE FARHAD RODRIGUEZ IN PREDICTING GLOMERULAR FILT RATION RATE. ESTIMATED GFR IS NOT APPLICAB LE FOR DIALYSIS PATIEN TS. [facility] METABOLIC [id number] 05:17:00 Test Item Value Reference Range Interpretation Comments SODIUM (BEAKER) 138 meq/L 136-145 (test code = 381) POTASSIUM (BEAKER) 4.2 meq/L 3.5-5.1 Specimen slightly (test code = 379) hemolyzed CHLORIDE (BEAKER) 106 meq/L 98-107 (test code = 382) CO2 (BEAKER) (test 22 meq/L 22-29 code = 355) BLOOD UREA NITROGEN 13 mg/dL 7-21 (BEAKER) (test code = 354) CREATININE (BEAKER) 0.70 mg/dL 0.57-1.25 Specimen slightly (test code = 358) hemolyzed GLUCOSE RANDOM 91 mg/dL 70-105 (BEAKER) (test code = 652) CALCIUM (BEAKER) 8.8 mg/dL 8.4-10.2 (test code = 697) EGFR (BEAKER) (test 126 mL/min/1.73 ESTIM ATED GFR IS code = 1092) sq m NOT ACCURATE CREATININE CLEARANCE IN PREDICTING GLOMERULAR FILTRATION RATE . ESTIMATED GFR I S NOT APPLICABLE FOR DIALYSIS PATIEN TS. CBC (Hemogram only)2019-03-04 04:49:00 Test Item Value Reference Range Interpretation Comments WBC (test code = 6690-2) 12.0 3.5- 10.5 K/L H RBC (test code = 789-8) 3.62 4.63- 6.08 M/L L MCHC (test code = 786-4) 32.9 32.3- 36.5 GM/DL L Hematocrit (test code = 4544-3) 35.6 % 40.1-51 L MCV (test code = 787-2) 98.3 fL 79-92.2 H MCH (test code = 785-6) 32.3 pg 25.7-32.2 H RDW (test code = 788-0) 12.7 % 11.6-14.4 Platelets (test code = 777-3) 332 150- 450 K/CU MM MPV (test code = 41743-6) 8.5 fL 9.4-12.4 L nRBC (test code = 413) 0 0- 0 /100 WBC Lab Interpretation (test code = Abnormal 48769-8) [facility]2019-03-04 04:49:00 Test Item Value Reference Range Interpretation Comments WHITE BLOOD CELL COUNT (BEAKER) 12.0 K/ L 3.5-10.5 H (test code = 775) RED BLOOD CELL COUNT (BEAKER) 3.62 M/ L 4.63-6.08 L (test code = 761) HEMOGLOBIN (BEAKER) (test code = 11.7 GM/DL 13.7-17.5 L 410) HEMATOCRIT (BEAKER) (test code = 35.6 % 40.1-51.0 L 411) MEAN CORPUSCULAR VOLUME (BEAKER) 98.3 fL 79.0-92.2 H (test code = 753) MEAN CORPUSCULAR HEMOGLOBIN 32.3 pg 25.7-32.2 H (BEAKER) (test code = 751) MEAN CORPUSCULAR HEMOGLOBIN CONC 32.9 GM/DL 32.3-36.5 (BEAKER) (test code = 752) RED CELL DISTRIBUTION WIDTH 12.7 % 11.6-14.4 (BEAKER) (test code = 412) PLATELET COUNT (BEAKER) (test 332 K/CU MM 150-450 code = 756) MEAN PLATELET VOLUME (BEAKER) 8.5 fL 9.4-12.4 L (test code = 754) NUCLEATED RED BLOOD CELLS 0 /100 WBC 0-0 (BEAKER) (test code = 413) BASIC METABOLIC [id number] 17:33:00 Test Item Value Reference Range Interpretation Comments SODIUM (BEAKER) 137 meq/L 136-145 (test code = 381) POTASSIUM (BEAKER) 4.5 meq/L 3.5-5.1 (test code = 379) CHLORIDE (BEAKER) 103 meq/L 98-107 (test code = 382) CO2 (BEAKER) (test 25 meq/L 22-29 code = 355) BLOOD UREA NITROGEN 13 mg/dL 7-21 (BEAKER) (test code = 354) CREATININE (BEAKER) 0.88 mg/dL 0.57-1.25 (test code = 358) GLUCOSE RANDOM 181 mg/dL 70-105 H (BEAKER) (test code = 652) CALCIUM (BEAKER) 9.5 mg/dL 8.4-10.2 (test code = 697) EGFR (BEAKER) (test 96 mL/min/1.73 ESTIMA MICHAEL GFR IS code = 1092) sq m NOT ACCURATE CREATININE CLEARANCE IN PREDICTING GLOMERULAR FILTRATION RATE . ESTIMATED GFR I S NOT APPLICABLE FOR DIALYSIS PATIEN TS. CBC with platelet count + automated [id number] 17:19:00 Test Item Value Reference Range Interpretation Comments WBC (test code = 6690-2) 14.8 3.5- 10.5 K/L H RBC (test code = 789-8) 3.88 4.63- 6.08 M/L L MCHC (test code = 786-4) 33.0 32.3- 36.5 GM/DL L Hematocrit (test code = 4544-3) 38.5 % 40.1-51 L MCV (test code = 787-2) 99.2 fL 79-92.2 H MCH (test code = 785-6) 32.7 pg 25.7-32.2 H RDW (test code = 788-0) 13.0 % 11.6-14.4 Platelets (test code = 777-3) 329 150- 450 K/CU MM MPV (test code = 57404-5) 8.5 fL 9.4-12.4 L nRBC (test code = 413) 0 0- 0 /100 WBC % Neutros (test code = 429) 90 % % Lymphs (test code = 430) 8 % % Monos (test code = 431) 1 % % Eos (test code = 432) 0 % % Baso (test code = 437) 0 % # Neutros (test code = 670) 13.38 1.78- 5.38 K/L H # Lymphs (test code = 414) 1.21 1.32- 3.57 K/L L # Monos (test code = 415) 0.15 0.30- 0.82 K/L L # Eos (test code = 416) 0.00 0.04- 0.54 K/L L # Baso (test code = 417) 0.02 0.01- 0.08 K/L Immature Granulocytes-Relative 1 % 0-1 (test code = 2801) Lab Interpretation (test code = Abnormal 61683-7) [facility] W/PLT COUNT & AUTO [id number] 17:19:00 Test Item Value Reference Range Interpretation Comments WHITE BLOOD CELL COUNT (BEAKER) 14.8 K/ L 3.5-10.5 H (test code = 775) RED BLOOD CELL COUNT (BEAKER) 3.88 M/ L 4.63-6.08 L (test code = 761) HEMOGLOBIN (BEAKER) (test code = 12.7 GM/DL 13.7-17.5 L 410) HEMATOCRIT (BEAKER) (test code = 38.5 % 40.1-51.0 L 411) MEAN CORPUSCULAR VOLUME (BEAKER) 99.2 fL 79.0-92.2 H (test code = 753) MEAN CORPUSCULAR HEMOGLOBIN 32.7 pg 25.7-32.2 H (BEAKER) (test code = 751) MEAN CORPUSCULAR HEMOGLOBIN CONC 33.0 GM/DL 32.3-36.5 (BEAKER) (test code = 752) RED CELL DISTRIBUTION WIDTH 13.0 % 11.6-14.4 (BEAKER) (test code = 412) PLATELET COUNT (BEAKER) (test 329 K/CU MM 150-450 code = 756) MEAN PLATELET VOLUME (BEAKER) 8.5 fL 9.4-12.4 L (test code = 754) NUCLEATED RED BLOOD CELLS 0 /100 WBC 0-0 (BEAKER) (test code = 413) NEUTROPHILS RELATIVE PERCENT 90 % (BEAKER) (test code = 429) LYMPHOCYTES RELATIVE PERCENT 8 % (BEAKER) (test code = 430) MONOCYTES RELATIVE PERCENT 1 % (BEAKER) (test code = 431) EOSINOPHILS RELATIVE PERCENT 0 % (BEAKER) (test code = 432) BASOPHILS RELATIVE PERCENT 0 % (BEAKER) (test code = 437) NEUTROPHILS ABSOLUTE COUNT 13.38 K/ L 1.78-5.38 H (BEAKER) (test code = 670) LYMPHOCYTES ABSOLUTE COUNT 1.21 K/ L 1.32-3.57 L (BEAKER) (test code = 414) MONOCYTES ABSOLUTE COUNT (BEAKER) 0.15 K/ L 0.30-0.82 L (test code = 415) EOSINOPHILS ABSOLUTE COUNT 0.00 K/ L 0.04-0.54 L (BEAKER) (test code = 416) BASOPHILS ABSOLUTE COUNT (BEAKER) 0.02 K/ L 0.01-0.08 (test code = 417) IMMATURE GRANULOCYTES-RELATIVE 1 % 0-1 PERCENT (BEAKER) (test code = 0621)
[2019-09-12] MEDS ORDERED: predniSONE 20 MG TAB ONE (14:20)
[2019-09-12] MEDS ORDERED: cloNIDine HCL 0.1 MG TAB ONE ×2 (14:20→14:21)
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
[2019-09-12] MEDS ORDERED: IBUPROFEN 400 MG TAB ONE (14:48)
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
[2019-09-12 16:03] VITALS: TEMP 98.8
[2019-09-12 16:07] VITALS: BP 145/110; O2SAT 99
== END 2019-09-12 15:54 | disposition home or self-care (01) ==
LOC: ER 13:03
DX: I11.9 Hypertensive heart disease without heart failure (principal); G62.9 Polyneuropathy, unspecified; Y00.XXXA Assault by blunt object, initial encounter; Y93.9 Activity, unspecified; Y92.9 Unspecified place or not applicable; F17.210 Nicotine dependence, cigarettes, uncomplicated
CPT/HCPCS: 70450; 72125; 99284; J7512